=== PATIENT | male | born 1960 | race Caucasian/White ===

== ENCOUNTER 2018-02-21 11:16 | Inpatient (IN) | payer OTHER ==
[~2018-02-21] VITALS: Ht 162.6 cm; Wt 82.1 kg
[~2018-02-21 11:16] MED LIST: AZAT50 PO; Boniva150 MG PO; CHOL10002 PO; DELTASONE20 MG PO; ERGO400 PO; Lisinopril2.5 MG PO; Pravachol40 MG PO; SODBIC650 PO
[2018-02-21 11:58] LABS: BASOPHILS ABSOLUTE AUTO 0.06 K/mm3 (0.00-0.23); BASOPHILS PERCENT AUTO 0 % (0-2); EOSINOPHILS ABSOLUTE AUTO 0.29 K/mm3 (0.00-0.68); EOSINOPHILS PERCENT AUTO 2 % (0-6); Hemoglobin 11.8 g/dL (13.5-17.5); IMMATURE GRAN ABSOLUTE AUTO 0.12 K/mm3 (0.00-0.10); IMMATURE GRAN PERCENT AUTO 1 % (0-1); LYMPHOCYTES ABSOLUTE AUTO 1.49 K/mm3 (0.84-5.20); LYMPHOCYTES PERCENT AUTO 9 % (21-46); MONOCYTES ABSOLUTE AUTO 1.86 K/mm3 (0.16-1.47); MONOCYTES PERCENT AUTO 11 % (4-13); Mean Corpuscular HGB 31.8 pg (26.0-34.0); Mean Corpuscular HGB Conc 33.7 g/dL (31.5-36.5); Mean Corpuscular Volume 94 fL (80-100); Mean Platelet Volume 9.7 fL (9.1-12.4); NEUTROPHILS ABSOLUTE AUTO 12.91 K/mm3 (1.96-9.15); NEUTROPHILS PERCENT AUTO 77 % (41-73); Platelet Count 285 K/mm3 (150-400); RDW Coefficient Variation 12.7 % (11.7-14.2); RDW Standard Deviation 43.8 fL (35.1-46.3); Red Blood Cell Count 3.71 M/mm3 (4.30-5.90); White Blood Cell Count 16.73 K/mm3 (4.00-11.30)
[2018-02-21 12:19] LABS: Albumin, Blood 3.6 g/dL (3.4-5.0); Albumin/Globulin Ratio 1.1 (0.8-1.8); Bilirubin, Total 0.5 mg/dL (0.1-1.0); Bun/Creatinine Ratio 16.2 (12.0-20.0); Calcium, Blood 9.1 mg/dL (8.5-10.1); Creatinine, Blood 3.59 mg/dL (0.60-1.20); Globulin, Blood 3.3 g/dL (2.2-4.0); Potassium, Blood 4.7 mmol/L (3.5-5.5); Total Protein, Blood 6.9 g/dL (6.4-8.2)
[2018-02-21 13:01] LABS: Source, Urine Clean Catch
[2018-02-21] MEDS ORDERED: [UNRECOGNIZED DRUG - OTHER] (13:04)
[2018-02-21] MEDS ORDERED: B COMPLEX WITH1 EACH PO (13:05)
[2018-02-21 13:12] LABS: Appearance, Urine Clear (Clear); Bilirubin, Urine Neg (Neg); Blood, Urine Neg (Neg); Color, Urine Yellow (P-Yellow); Glucose Qualitative, Urine Neg (Neg); Ketones, Urine Neg (Neg); Leukocyte Esterase, Urine Neg (Neg); Nitrite, Urine Neg (Neg); Protein, Urine 2+ (Neg); Specific Gravity, Urine 1.015 (1.003-1.022); Urobilinogen, Urine NORM (Normal)
[2018-02-21 13:19] LABS: Bacteria Rare /hpf; Red Blood Cells, Urine Not Seen /hpf (0-2); Squamous Epithelial Cells Few /hpf (Few); White Blood Cells, Urine 0-2 /hpf (0-5)
[2018-02-21] MEDS ORDERED: CALC.25 PO (16:47)
[2018-02-21] MEDS ORDERED: Vitamin D2000 UNIT PO (16:51)
[2018-02-22 06:03] LABS: BASOPHILS ABSOLUTE AUTO 0.03 K/mm3 (0.00-0.23); BASOPHILS PERCENT AUTO 0 % (0-2); EOSINOPHILS ABSOLUTE AUTO 0.03 K/mm3 (0.00-0.68); EOSINOPHILS PERCENT AUTO 0 % (0-6); Hematocrit 30.9 % (37.0-53.0); Hemoglobin 9.9 g/dL (13.5-17.5); IMMATURE GRAN ABSOLUTE AUTO 0.08 K/mm3 (0.00-0.10); IMMATURE GRAN PERCENT AUTO 1 % (0-1); LYMPHOCYTES ABSOLUTE AUTO 1.05 K/mm3 (0.84-5.20); LYMPHOCYTES PERCENT AUTO 10 % (21-46); MONOCYTES ABSOLUTE AUTO 0.43 K/mm3 (0.16-1.47); MONOCYTES PERCENT AUTO 4 % (4-13); Mean Corpuscular HGB 31.4 pg (26.0-34.0); Mean Platelet Volume 10.1 fL (9.1-12.4); NEUTROPHILS ABSOLUTE AUTO 9.45 K/mm3 (1.96-9.15); NEUTROPHILS PERCENT AUTO 85 % (41-73); Platelet Count 213 K/mm3 (150-400); RDW Standard Deviation 46.3 fL (35.1-46.3); Red Blood Cell Count 3.15 M/mm3 (4.30-5.90); White Blood Cell Count 11.07 K/mm3 (4.00-11.30)
[2018-02-22 06:12] LABS: Albumin, Blood 2.9 g/dL (3.4-5.0); Anion Gap 7 mmol/L (6-16); Blood Urea Nitrogen 54 mg/dL (8-24); Bun/Creatinine Ratio 15.7 (12.0-20.0); CO2, Blood 21 mmol/L (21-32); Calcium, Blood 7.9 mg/dL (8.5-10.1); Chloride, Blood 112 mmol/L (98-108); Creatinine, Blood 3.43 mg/dL (0.60-1.20); Glomerular Filtration Rate 20 (60-); Glucose, Blood 98 mg/dL (70-99); Magnesium, Blood 2.1 mg/dL (1.6-2.4); Phosphorus, Blood 3.1 mg/dL (2.5-4.9); Potassium, Blood 5.2 mmol/L (3.5-5.5); Sodium, Blood 140 mmol/L (136-145)
[2018-02-22 06:15] LABS: Mean Corpuscular Volume 98 fL (80-100)
[2018-02-23 05:45] LABS: BASOPHILS ABSOLUTE AUTO 0.03 K/mm3 (0.00-0.23); BASOPHILS PERCENT AUTO 0 % (0-2); EOSINOPHILS ABSOLUTE AUTO 0.27 K/mm3 (0.00-0.68); EOSINOPHILS PERCENT AUTO 3 % (0-6); Hematocrit 28.6 % (37.0-53.0); Hemoglobin 9.2 g/dL (13.5-17.5); IMMATURE GRAN ABSOLUTE AUTO 0.06 K/mm3 (0.00-0.10); IMMATURE GRAN PERCENT AUTO 1 % (0-1); LYMPHOCYTES ABSOLUTE AUTO 1.82 K/mm3 (0.84-5.20); LYMPHOCYTES PERCENT AUTO 22 % (21-46); MONOCYTES ABSOLUTE AUTO 0.77 K/mm3 (0.16-1.47); MONOCYTES PERCENT AUTO 9 % (4-13); Mean Corpuscular HGB 30.9 pg (26.0-34.0); Mean Corpuscular HGB Conc 32.2 g/dL (31.5-36.5); Mean Corpuscular Volume 96 fL (80-100); Mean Platelet Volume 10.2 fL (9.1-12.4); NEUTROPHILS PERCENT AUTO 65 % (41-73); Platelet Count 224 K/mm3 (150-400); RDW Coefficient Variation 12.9 % (11.7-14.2); RDW Standard Deviation 44.1 fL (35.1-46.3); Red Blood Cell Count 2.98 M/mm3 (4.30-5.90); White Blood Cell Count 8.35 K/mm3 (4.00-11.30)
[2018-02-23 06:15] LABS: Albumin, Blood 2.9 g/dL (3.4-5.0); Anion Gap 9 mmol/L (6-16); Blood Urea Nitrogen 44 mg/dL (8-24); Bun/Creatinine Ratio 13.7 (12.0-20.0); CO2, Blood 22 mmol/L (21-32); Calcium, Blood 7.9 mg/dL (8.5-10.1); Chloride, Blood 111 mmol/L (98-108); Creatinine, Blood 3.21 mg/dL (0.60-1.20); Glomerular Filtration Rate 21 (60-); Glucose, Blood 76 mg/dL (70-99); Magnesium, Blood 2.2 mg/dL (1.6-2.4); Phosphorus, Blood 3.8 mg/dL (2.5-4.9); Potassium, Blood 4.5 mmol/L (3.5-5.5); Sodium, Blood 142 mmol/L (136-145)
[2018-02-24 05:17] LABS: Hematocrit 29.2 % (37.0-53.0); Hemoglobin 9.4 g/dL (13.5-17.5)
[2018-02-24 06:05] LABS: Anion Gap 10 mmol/L (6-16); Blood Urea Nitrogen 35 mg/dL (8-24); Bun/Creatinine Ratio 11.8 (12.0-20.0); CO2, Blood 21 mmol/L (21-32); Calcium, Blood 8.2 mg/dL (8.5-10.1); Chloride, Blood 111 mmol/L (98-108); Creatinine, Blood 2.97 mg/dL (0.60-1.20); Glomerular Filtration Rate 23 (60-); Glucose, Blood 77 mg/dL (70-99); Magnesium, Blood 2.2 mg/dL (1.6-2.4); Phosphorus, Blood 3.7 mg/dL (2.5-4.9); Potassium, Blood 4.4 mmol/L (3.5-5.5); Sodium, Blood 142 mmol/L (136-145)
[2018-02-24] MEDS ORDERED: CIPR250 PO (11:08)
[2018-02-24] MEDS ORDERED: METR500 PO (11:09)
== END 2018-02-24 12:09 | disposition home or self-care (01) | DRG 872 ==
LOC: ER 11:16 → MEDS 11:17
PROVIDERS: Emergency Medicine; Hospitalist; Internal Medicine Nephrology; Physician Assistant
DX: A41.9 Sepsis, unspecified organism (principal); N17.9 Acute kidney failure, unspecified; K57.92 Diverticulitis of intestine, part unspecified, without perforation or abscess without bleeding; Z94.0 Kidney transplant status; N25.81 Secondary hyperparathyroidism of renal origin; K42.9 Umbilical hernia without obstruction or gangrene; R65.20 Severe sepsis without septic shock; E87.6 Hypokalemia; E78.5 Hyperlipidemia, unspecified; N18.9 Chronic kidney disease, unspecified; I12.9 Hypertensive chronic kidney disease with stage 1 through stage 4 chronic kidney disease, or unspecified chronic kidney disease; D63.1 Anemia in chronic kidney disease; E86.9 Volume depletion, unspecified; M81.0 Age-related osteoporosis without current pathological fracture; R80.9 Proteinuria, unspecified; Z88.8 Allergy status to other drugs, medicaments and biological substances; Z79.899 Other long term (current) drug therapy
CPT/HCPCS: 36415; 74176; 80048; 80053; 80069; 81001; 83605; 83690; 83735; 85014; 85018; 85025; 96361; 96365; 96375; 96376; 99285-25; J0881; J1644; J2405; J2543; J3010; J7030; J7500

== ENCOUNTER 2020-10-22 11:01 | Day surgery (SDC) | payer OTHER ==
[~2020-10-22 11:01] MED LIST changes: +AMLO10 PO; +B COMPLEX WITH1 EACH PO; +CALC.25 PO; +CIPR250 PO; +HYDCHL12.5 PO; +METR500 PO; +PRAVASTATIN SOD40 MG PO; +PRED5 PO; +SODIUM BICARBO325 M1 PO; +VITAMIN D325 MC3 PO; +Vitamin D2000 UNIT PO; +[UNRECOGNIZED DRUG - OTHER]
== END 2020-10-22 11:45 | disposition home or self-care (01) ==
LOC: ORSCSDS 11:01
DX: Z12.11 Encounter for screening for malignant neoplasm of colon (principal); Z53.9 Procedure and treatment not carried out, unspecified reason
CPT/HCPCS: J2704; J7120

== ENCOUNTER → 2023-04-08 | Outpatient (CLI) | payer BC | LOC: LAB SHORT 14:43 → LAB 14:43 | DX: C44.42 Squamous cell carcinoma of skin of scalp and neck (principal) | CPT/HCPCS: 88305 ==

== ENCOUNTER → 2023-04-27 | Outpatient (CLI) | payer BC | END | disposition home or self-care (01) | LOC: LAB 14:36 → LAB SHORT 14:36 | DX: L82.1 Other seborrheic keratosis (principal) | CPT/HCPCS: 88305 ==

== ENCOUNTER 2024-09-20 22:17 | Emergency (ER) | payer OTHER ==
[~2024-09-20] VITALS: Ht 160 cm; Wt 75.8 kg
[~2024-09-20 22:17] MED LIST changes: +ASPI81CH PO; +ATOR40TA PO; +CLOP75 PO; +FAMO10 PO; +ICAPS AREDS2 T1 EACH PO; +LOSA50 PO; +METO50ER PO; +NEPHRO VITAMIN0.8 MG PO; +PRAV20 PO; +PRED20 PO; +Rena-Vite Tabl0.8 MG PO; +SEVEC800 PO; +VITAMIN B121000 MCG PO
[2024-09-21 01:30] VITALS: BP 155/81
== END 2024-09-21 01:42 | disposition home or self-care (01) ==
LOC: ER 22:17
DX: S00.211A Abrasion of right eyelid and periocular area, initial encounter (principal); S00.81XA Abrasion of other part of head, initial encounter; I10 Essential (primary) hypertension; E78.5 Hyperlipidemia, unspecified; Z79.52 Long term (current) use of systemic steroids; Z79.899 Other long term (current) drug therapy; Z79.82 Long term (current) use of aspirin; Z79.02 Long term (current) use of antithrombotics/antiplatelets; Z91.041 Radiographic dye allergy status; Z88.8 Allergy status to other drugs, medicaments and biological substances
CPT/HCPCS: 12011; 99282-25